=== PATIENT | male | born 1980 | race Caucasian/White ===

== ENCOUNTER 2017-10-09 15:35 | Emergency (ER) | payer BC, SELFPAY ==
[2017-10-09 15:36] VITALS: BP 157/98; PULSE 87; RESP 14; TEMP 36.2; O2SAT 100; BMI 26.2
[2017-10-09 15:43] VITALS: BP 146/97; PULSE 87; RESP 14; O2SAT 100
--- NOTE | 2017-10-09 15:46 | CT_ITS ---
STUDY: CT ABDOMEN AND PELVIS WITHOUT CONTRAST REASON FOR EXAM: Male, 37 years old. Left flank pain. RADIATION DOSAGE (If Supplied By Facility): CTDIvol = ( 7.44 ) mGy, DLP = ( 377.26 ) mGycm TECHNIQUE: Transaxial images were obtained from the dome of the diaphragm to the symphysis pubis without oral contrast, and without intravenous contrast. Sagittal and coronal images were reconstructed. Individualized dose optimization techniques were used for this CT. COMPARISON: July 06, 2013 FINDINGS: The visualized lung bases are unremarkable. The visualized portions of the heart are within normal limits. Normal liver. Normal gallbladder and extrahepatic biliary system. The spleen is at the upper limits of normal, not significantly changed since the prior examination. Normal pancreas. Normal bilateral adrenal glands. Normal right kidney. Normal left kidney. Normal visualized stomach. Normal small intestine. There are diverticula throughout the colon most pronounced within the sigmoid colon. The appendix is visualized and appears normal. Normal abdominal aorta. Normal inferior vena cava. Normal retroperitoneum. Normal urinary bladder. Normal abdominal wall. Normal osseous structures. CT/Abdomen/Pelvis without Cont IMPRESSION: No acute intra-abdominal process. Colonic diverticulosis without evidence of diverticulitis. Electronically Signed: Luz Valdovinos MD at 16:55 EST Tel , Service support ,
--- NOTE | 2017-10-09 15:49 | ED.DCSUM_ITS ---
- ER Visit Summary Date of Service: 10/09/17 Chief Complaint: Flank pain History of Present Illness: The patient is a 37 M with flank pain since this morning. It started relatively suddenly. Worse with movement. He does report cloudy urine and constipation. He has a history of diverticulitis. He also has a history of flulike symptoms this past weekend. He was dizzy, had a fever , and had a cough. Physical Examination: Afebrile, hypertensive, otherwise vitals normal. Patient is nontoxic. Heart regular. No respiratory distress. Abdomen soft and nontender. No masses or distention. No guarding rebound. Left CVA tender to palpation. Back otherwise normal. Spine nontender. Test Results: CT, labs, urinalysis pending. Emergency Department Course and Treatment: He received fluids and Toradol while awaiting results. Patient's workup is unremarkable. Labs, urinalysis, and imaging unremarkable. He does have some diverticulosis without signs of diverticulitis. Nothing to explain his symptoms. This is likely myofascial back pain. I am not sure why it radiates through to his abdomen or he has urinary symptoms. Patient will be started on anti-inflammatories and muscle relaxers. Follow-up with primary care. Return for any new or worsening symptoms. Treatment Plan: As above Disposition: Discharge Impression: 1. Left flank pain This note was generated with [employer]ellynote dictation software. It may contain incorrect words, spelling, and punctuation that were not noted in review of the chart prior to signing ED Disposition - Plan for ED Patient: Chief Complaint: Flank Pain Referrals: Care Physician,No Primary [Primary Care Provider] -
[2017-10-09] MEDS: 0.9% Normal Saline 1,000 ML 1000 ML IV (16:02)
[2017-10-09] MEDS: Ketorolac 30 MG/ML Syringe IV (16:02)
[2017-10-09 16:10] LABS: Bacteria 0 SEEN /hpf (None Seen); Mucous, Urine 0 SEEN /hpf (<or=2+); Red Blood Cells-Urine 0 SEEN /hpf (0-5); Squamous Epithelial Cells - UA 0 SEEN /hpf (0-5); White Blood Cells 0 SEEN /hpf (0-5)
[2017-10-09 16:14] LABS: Color, Urine Yellow (Yellow); Glucose, Dipstick Normal (Normal); Ketone-Dipstick Negative (Negative); Leukocyte Esterase-Dipstick Negative /ul (Negative); Nitrite-Dipstick Negative (Negative); Occult Blood-Urine Negative /ul (Negative); Protein-Dipstick Negative (Negative); Specific Gravity, Urine 1.025 (1.002-1.030); Urine Bilirubin Dipstick Negative (Negative); Urine Clarity Clear (Clear); Urine Urobilinogen Normal (Normal)
[2017-10-09 16:18] LABS: Absolute Lymphocyte Count 2.02 X10^3/ul (0.83-4.51); Absolute Neutrophil Count 2.3 X10^3/uL (2.0-7.7); Basophil# 0.05 X10^3/uL; Basophil% 0.9 % (0-1); Eosinophil# 0.17 X10^3/uL; Eosinophils% 3.2 % (0-5); Hematocrit 47.2 % (40-54); Hemoglobin 16.1 g/dl (13.0-16.5); Lymphocyte # 2.02 X10^3/ul (4.0); Lymphocyte % 38.3 % (19-41); Mean Corp Hgb Conc 34.1 g/gl (32-36); Mean Corpuscular Volume 93.8 fL (80-94); Mean Platelet Vol. 10.7 fl (6.2-12.0); Monocyte# 0.71 X10^3/uL; Monocyte% 13.4 % (0-10); Neutrophil # 2.33 X10^3/uL (2.7-7.7); Neutrophil % 44.2 % (47-70); Platelet Count 157 K/mm3 (150-450); RBC Distribution Width CV 12.5 % (11.6-14.6); RBC Distribution Width SD 42.3 fl (35.1-43.9); Red Blood Count 5.03 M/mm3 (4.6-6.2); White Blood Count 5.3 K/mm3 (4.4-11.0)
[2017-10-09 16:19] LABS: POSITIVE COUNT NO; POSITIVE DIFFERENTIAL NO; POSITIVE MORPHOLOGY NO
[2017-10-09 16:22] LABS: Anion Gap 6 (5-15); BUN 11 mg/dL (7-18); BUN/Creat Ratio 12.1 RATIO (10-20); Calcium,Total 8.7 mg/dL (8.5-10.1); Chloride 109 mmol/L (98-107); Creatinine, Serum 0.91 mg/dL (0.70-1.30); EST Glomerular Filtration Rate 100 mL/min (>60); Est Glom Filt Rate - Afr Amer 120 mL/min (>60); Estimated Creatinine Clearance 114.76 ml/min; Glucose 85 mg/dL (74-106); Potassium 4.4 mmol/L (3.5-5.1); Sodium Level 141 mmol/L (136-145)
--- NOTE | 2017-10-09 17:18 | ED.DEP ---
ED Disposition - Plan for ED Patient: Chief Complaint: Flank Pain Instructions: ED Neck Back Pain General Prescriptions: Naproxen [Naprosyn] 500 mg PO BID PRN #20 tab Cyclobenzaprine [Flexeril] 10 mg PO TID PRN #20 tab PRN Reason: Muscle Spasm Referrals: Renato Silver DO [NON-STAFF] -
[2017-10-09 17:28] VITALS: BP 138/88; PULSE 71; RESP 16; O2SAT 98
== END 2017-10-09 17:29 | disposition home or self-care (01) ==
PROVIDERS: Emergency Provider Emergency Medicine
DX: R10.9 Unspecified abdominal pain (principal); R03.0 Elevated blood-pressure reading, without diagnosis of hypertension; Z72.0 Tobacco use; Z87.19 Personal history of other diseases of the digestive system
CPT/HCPCS: 74176; 80048; 81001; 85025; 99283; J7030; A4216